=== PATIENT | male | born 1980 | race Caucasian/White ===

== ENCOUNTER 2020-12-15 08:45 | Day surgery (SDC) | payer OTHER, SELFPAY ==
[2020-12-15 09:33] LABS: COVID19 -Nasal RAPID Negative (Negative)
[2020-12-15 09:53] VITALS: BMI 26.2
[2020-12-15 10:07] VITALS: BP 138/71; PULSE 73; RESP 16; TEMP 36.4; O2SAT 100
[2020-12-15] MEDS: SODIUM CHLORIDE 0.9% 1,000 ML 84 ML IV (10:10)
--- NOTE | 2020-12-15 10:50 | P.HP_ITS ---
History of Present Illness History of Present Illness Date Patient Seen: 12/15/20 Time Patient Seen: 10:50 Chief complaint: SDC Narrative: Cramping has improved since we talked in the office. Patient History Medical History DJD (degenerative joint disease) of thoracic spine Migraine Family & Social History Social History: household members spouse Tobacco & Substance use: Smoking Status Never smoker alcohol intake current alcohol intake frequency holiday/special occasion Substance Use Type does not use Meds Home Medications and Allergies Home Medications Medication Instructions Recorded Confirmed Type lactobacillus combination no.4 3 3,000 mmu cells PO DAILY 12/15/20 12/15/20 His tory billion cell capsule (Probiotic) sumatriptan succinate 25 mg tablet 5 mg PO DAILY PRN 12/15/20 12/15/20 History Allergies Allergy/AdvReac Type Severity Reaction Status Date / Time No Known Drug Allergies Allergy Verified 12/15/20 09:51 Review of Systems Review of Systems ROS: Yes All systems reviewed with the patient and are negative except as otherwise documented Exam Vital Signs (past 8 hours): - 12/15/20 10:07 Temperature 97.6 F Pulse Rate 73 Respiratory Rate 16 Blood Pressure 138/71 Pulse Oximetry 100 Oxygen Delivery Method Room Air Const General: cooperative and comfortable Orientation: alert HENMT Head: normocephalic Ears: external ears normal Nose: external nose normal Face and sinus: normal facial exam Mouth: oral mucosae normal Eyes General: appearance normal, both eyes and all related structures Neck Neck: normal visual inspection Chest Chest: normal inspection of the chest Resp Effort & Inspection: normal respiratory effort Auscultation: clear to auscultation bilaterally Cardio Rate: regular rate Rhythm: regular rhythm Heart Sounds: no murmurs GI Inspection: normal to inspection Palpation: soft and No tender Auscultation: normal bowel sounds Skin General: no rashes or lesions noted and No jaundice Neuro General: patient alert and moves all extremities Cognition: normal cognition Speech: speech normal Extrem General: no pedal edema Psych Appearance: grossly normal Objective Labs Labs: Laboratory Results - last 24 hr 12/15/20 09:12 SARS-CoV-2 (PCR) Negative Assessment & Plan Assessment & Plan narrative: Change in bowel habit. Colonoscopy is pursued today to exclude structural anomaly large polyp etc..
--- NOTE | 2020-12-15 10:51 | PM.PREOP ---
Pre-operative Note COVID-19 COVID-19 status: Negative Result date/Date tested (Pos, Neg/Pending): 12/15/20 Interval Note History & Physical reviewed/Exam performed by Physician: Yes Changes to H&P: No ASA Class (for procedural sedation): I
[2020-12-15] MEDS: fentaNYL 250 MCG/5 ML INJ IV (10:55)
[2020-12-15] MEDS: MIDAZOLAM 5 MG/5 ML VIAL IV (10:55)
--- NOTE | 2020-12-15 11:23 | PM.OP.ENDO ---
Operative Date/Time/Diagnoses Date of procedure: 12/15/20 Time of procedure: 11:23 Pre-op diagnosis: Altered bowel habit constipation Post-op diagnosis: same Procedure & Clinicians Study performed: Colonoscopy Same procedure as scheduled: Yes Indications: Altered bowel habit constipation Surgeon: Isidoro Rosas Procedure Notes SCOAP/Timeout: Done Procedure in detail: After the risks and benefits were explained, written and verbal informed consent was obtained. The patient was brought into the procedure room and placed into the left lateral decubitus position. Conscious sedation medication was applied as per nursing documentation. Digital rectal examination was accomplished. The scope was introduced into the patient and advanced under direct visualization to the cecum as identified by the appendiceal orifice and ileocecal valve. The scope was slowly withdrawn to carefully examine the mucosa for any defects or lesions. Comprehensive imaging was accomplished throughout the rectum including the dentate line. The colon was decompressed, the scope was then removed from the patient who tolerated the procedure well. Bowel prep adequate 6 mg Versed 150 mcg fentanyl Adult colonoscope Scope withdrawal time: 7 minutes Sedation minutes: 21 Specimen(s): none sent Complications: none Impression: Patient had a moderately tortuous sigmoid. No strictures no mass lesions no polypoid structures. No proctocolitis throughout. Terminal ileum was interrogated and appeared visually normal. Endoscopic diagnosis Visually normal colonoscopy to cecum and terminal ileum Post-procedure Plan for aftercare: 1. Fiber based bowel regimen for soft regular stools 2. Colon cancer screening with colonoscopy at age 51. 3. Follow up GI clinic any time as needed. Otherwise continue to follow up in primary care. Disposition: PACU
[2020-12-15 11:26] VITALS: BP 124/64; PULSE 72; RESP 16; TEMP 36.7; O2SAT 97
[2020-12-15 11:31] VITALS: BP 123/61; PULSE 73; RESP 12; O2SAT 97
[2020-12-15 11:36] VITALS: BP 125/68; PULSE 69; RESP 14; O2SAT 94
[2020-12-15 11:41] VITALS: BP 126/71; PULSE 65; RESP 12; O2SAT 97
[2020-12-15 11:43] VITALS: BP 119/76; PULSE 67; RESP 14; O2SAT 97
== END 2020-12-15 11:50 | disposition home or self-care (01) ==
PROVIDERS: Referring Provider Internal Medicine Gastroenterology; Visit Provider Internal Medicine Gastroenterology
PROC: 0DJD8ZZ Inspection of Lower Intestinal Tract, Via Natural or Artificial Opening Endoscopic (ICD-10-PCS; CPT 45378; principal; 2020-12-15 10:30)
DX: K59.00 Constipation, unspecified (principal); Z20.822 Contact with and (suspected) exposure to COVID-19
CPT/HCPCS: 45378; 87635; J2250; J3010

== ENCOUNTER → 2021-02-17 14:01 | Outpatient (CLI) | payer OTHER, SELFPAY ==
--- NOTE | 2021-02-17 14:02 | DI.MRI.S_ITS ---
PROCEDURE: MR LUMBAR SPINE WO CON INDICATIONS: Dorsalgia, unspecified TECHNIQUE: Noncontrast sagittal T1 spin echo and T2 fast echo, sagittal STIR, axial T1 and T2 fast spin echo through the lumbar spine. In cases with scoliosis, additional coronal T2 fast spin echo may be performed. COMPARISON: None. FINDINGS: Image quality: Excellent. Alignment and Curvature: There is normal bony alignment. Bone Marrow: Marrow is of normal overall signal. No acute vertebral body compression fractures. Spinal Cord: Conus medullaris terminates at the L1 level. Visualized cord demonstrates normal signal and size. Paraspinous Soft Tissues: No paravertebral masses. T12-L1: Normal appearance. L1-L2: Normal appearance. L2-L3: Normal appearance. L3-L4: Normal appearance. L4-L5: The disc height and disk signal are well-preserved. Mild to moderate disc bulge is seen, with a mild central disc protrusion. Mild bilateral neural foraminal narrowing is seen. Minimal central canal narrowing is seen. L5-S1: The disc height is well-preserved. Loss of disc signal is seen at this level. Mild to moderate disc bulge is seen. There is a superimposed central disc protrusion. There is a focal annular fissure seen posteriorly. Mild to moderate facet hypertrophy is seen. There is moderate to severe left-sided and moderate right-sided neural foraminal narrowing seen. Minimal central canal narrowing is seen. IMPRESSION: Focal L5-S1 degenerative change is seen, with a central disc protrusion and an annular fissure. Dictated by: Mark Garcia M.D. on 02/17/2021 at 14:13 Approved by: Mark Garcia M.D. on 02/17/2021 at 14:14
== END ==
DX: M54.9 Dorsalgia, unspecified (principal); M47.817 Spondylosis without myelopathy or radiculopathy, lumbosacral region; M51.27 Other intervertebral disc displacement, lumbosacral region
CPT/HCPCS: 72148